=== PATIENT | male | born 1985 | race Caucasian/White ===

== ENCOUNTER 2016-11-12 22:43 | Observation (INO) | payer MEDICAID ==
[2016-11-12] MEDS ORDERED: Haloperidol Lactate 5 mg/mL 1mL Vial ONE ×2 (23:21)
[2016-11-12] MEDS ORDERED: Haloperidol Lactate 5 mg/mL 1mL Vial IM STA ×2 (23:42)
[2016-11-13] MEDS ORDERED: Haloperidol Lactate 5 mg/mL 1mL Vial ONE ×4 (00:42→04:53)
[2016-11-13 00:47] LABS: % BASOPHILS 0.1 % (0.0-2.0); % EOSINOPHILS 1.9 % (0.0-5.0); % LYMPHOCYTES 29.9 % (20.0-50.0); % MONOCYTES 10.9 % (2.0-10.0); % NEUTROPHILS 57.2 % (40.0-80.0); EOSINOPHILE ABSOLUTE 0.1 Th/cmm (0.1-0.4); HEMATOCRIT 34.9 % (41.0-60); HEMOGLOBIN 11.8 gm/dL (12-16); LYMPHOCYTE ABSOLUTE 1.9 Th/cmm (1.5-3.0); MEAN CELL VOLUME 84.8 fl (80-99); MEAN CORPUSCULAR HEMOGLOBIN 28.5 pg (26.0-30.0); MEAN CORPUSCULAR HGB CONC 33.6 pg (28.0-36.0); MEAN PLATELET VOLUME 8.2 fl; MONOCYTE ABSOLUTE 0.7 Th/cmm (0.3-1.0); NEUTROPHILE ABSOLUTE 3.7 Th/cmm (1.8-8.0); PLATELET COUNT 262 Th/cmm (150-400); RED BLOOD COUNT 4.12 Mil/cmm (4.30-5.70); RED CELL DISTRIBUTION WIDTH 13.5 % (11.5-20.0); WHITE BLOOD COUNT 6.4 Th/cmm (4.8-10.8)
[2016-11-13] MEDS ORDERED: Haloperidol Lactate 5 mg/mL 1mL Vial IM STA ×4 (00:55→05:03)
[2016-11-13 01:00] LABS: ACETAMINOPHEN < 10.0 ug/mL (10.0-30.0); ALB/GLOB RATIO 1.2 (1.0-1.8); ALBUMIN 3.6 gm/dL (4.2-5.5); ALKALINE PHOSPHATASE 56 U/L (34-104); ANION GAP 8.6 (7.0-16.0); BILIRUBIN,TOTAL 0.2 mg/dL (0.3-1.0); BUN - UREA NITROGEN 9 mg/dL (7-25); CHLORIDE 102 mEq/L (98-107); CHOLESTEROL 115 mg/dL (<200); CREATININE - SERUM 0.5 mg/dL (0.7-1.3); GFR AFRICAN-AMERICAN > 60.0 ml/min (>90); GFR NON AFRICAN-AMERICAN > 60.0 ml/min; GLUCOSE 94 mg/dL (70-105); HDL -HIGH DENSITY LIPOPROTEIN 28 mg/dL (23-92); POTASSIUM SERUM 3.6 mEq/L (3.5-5.1); SALICYLATES (ASPIRIN) < 25.0 mg/L (30.0-100.0); SGOT 19 U/L (13-39); SGPT/ALT 26 U/L (7-52); SODIUM SERUM 133 mEq/L (136-145); TOTAL PROTEIN,SERUM 6.5 gm/dL (6.0-8.3); TRIGLYCERIDES 69 mg/dL (<150)
[2016-11-13] MEDS ORDERED: Sodium Chloride 0.9% 1,000 ML IV ONE ×2 (01:05)
[2016-11-13 01:57] LABS: URINE MICROSCOPIC INDICATED? YES; URINE SOURCE CLEAN C
[2016-11-13 02:13] LABS: URINE BILIRUBIN NEGATIVE (NEGATIVE); URINE BLOOD NEGATIVE (NEGATIVE); URINE GLUCOSE (UA) NEGATIVE (NEGATIVE); URINE KETONE NEGATIVE (NEGATIVE); URINE LEUKOCYTE ESTERASE NEGATIVE (NEGATIVE); URINE NITRATE NEGATIVE (NEGATIVE); URINE PROTEIN NEGATIVE (NEGATIVE); URINE UROBILINOGEN 0.2 E.U./dL (0.2 - 1.0)
[2016-11-13 02:16] LABS: URINE BACTERIA OCCASIONAL /hpf (NONE SEEN); URINE CLARITY CLEAR (CLEAR); URINE COLOR YELLOW; URINE EPITHELIAL CELLS OCCASIONAL /lpf (FEW); URINE RBC 0-2 /hpf (0-5); URINE WBC 0-2 /hpf (0-5)
[2016-11-13 02:26] LABS: AMPHETAMINE URINE NEGATIVE (NEGATIVE); BARBITURATES URINE NEGATIVE (NEGATIVE); BENZODIAZEPINES QUAL URINE POSITIVE (NEGATIVE); CANNABINOID THC NEGATIVE (NEGATIVE); COCAINE METABOLITE QUAL URINE NEGATIVE (NEGATIVE); METHADONE URINE NEGATIVE (NEGATIVE); METHAMPHETAMINES QUAL URINE NEGATIVE (NEGATIVE); OPIATES (MORPHINE) QUAL. URINE POSITIVE (NEGATIVE); PHENCYCLIDINE (PCP) URINE NEGATIVE (NEGATIVE); TRICYCLICS (TCA) QUAL. URINE NEGATIVE (NEGATIVE)
--- NOTE | 2016-11-13 03:02 | ED Physician Chart ---
ED Chief Complaint/HPI - Patient Information Date Seen:: 11/12/16 Time Seen:: 23:00 Chief Complaint:: Agitation History of Present Illness:: onset x one day of combative behavior, aggression, and agitation; no SIs, H/As, neck pain, C/P, SOB, Abd. pain, A/N/V/D/C, fever, chills, urinary s/s, or LOC Allergies:: Allergies Allergy/AdvReac Type Severity Reaction Status Date / Time No Known Allergies Allergy Verified 11/12/16 23:40 Vitals:: Vital Signs - 8 hr 11/12/16 11/13/16 23:00 01:11 Temp 97.8 F 98.1 F HR 90 90 RR 18 15 BP 148/80 144/72 O2 Sat % 99 100 Historian:: EMS Review:: Nurse's Note Reviewed, EMS run form Reviewed, Transfer documents Reviewed ED Review of Systems - Review of Systems General/Constitutional: No fever, No chills, No weight loss, No weakness, No diaphoresis, No edema, No loss of appetite Skin: No skin lesions, No rash, No bruising Head: No headache, No light-headedness Eyes: No loss of vision, No pain, No diplopia ENT: No earache, No nasal drainage, No sore throat, No tinnitus Neck: No neck pain, No swelling, No thyromegaly, No stiffness, No mass noted Cardio Vascular: No chest pain, No palpitations, No PND, No orthopnea, No edema Pulmonary: No SOB, No cough, No sputum, No wheezing GI: No nausea, No vomiting, No diarrhea, No pain, No melena, No hematochezia, No constipation, No hematemesis G/U: No dysuria, No frequency, No hematuria Musculoskeletal: No bone or joint pain, No back pain, No muscle pain Endocrine: No polyuria, No polydipsia Psychiatric: Prior psych history, Depression, Anxiety, No suicidal ideation, No homicidal ideation, Auditory hallucination, Visual hallucination Hematopoietic: No bruising, No lymphadenopathy Allergic/Immuno: No urticaria, No angioedema Neurological: No syncope, No focal symptoms, No weakness, No paresthesia, No headache, Seizure, No dizziness, Confusion, No vertigo ED Past Medical History - Past Medical History Obtainable: Yes Past Medical History: Dyslipidemia, PUD/GERD, Seizures, Dementia Family History: HTN Social History: Non Smoker, No Alcohol, No Drug Use, Single, Care Facility Surgical History: other (Small Bowel Anastimosis) Psychiatricy History: Schizophrenia, Bipolar, Dementia Medication: Reviewed Family Medical History - Family Member Mother History Unknown: Yes ED Physical Exam - Physical Examination General/Constitutional: Awake, Well-developed, well-nourished, Alert, No distress, GCS 15, Non-toxic appearing, Ambulatory Head: Atraumatic Eyes: Lids, conjuctiva normal, PERRL, EOMI Skin: Nl inspection, No rash, No skin lesions, No ecchymosis, Well hydrated, No lymphadenopathy ENMT: External ears, nose nl, Nasal exam nl, Lips, teeth, gums nl Neck: Nontender, Full ROM w/o pain, No JVD, No nuchal rigidity, No bruit, No mass, No stridor Respiratory: Nl effort/Exclusion, Clear to Auscultation, No Wheeze/Rhonchi/Rales Cardio Vascular: RRR, No murmur, gallop, rubs, NL S1 S2 GI: No tenderness/rebounding/guarding, No organomegaly, No hernia, Normal BS's, Nondistended, No mass/bruits, No McBurney tenderness : No CVA tenderness Extremities: No tenderness or effusion, Full ROM, normal strength in all extremities, No edema, Normal digits & nails Neuro/Psych: DTR's symmetric, Normal sensory exam, Normal motor strength, Normal gait, No focal deficits Other Neuro/Psych comments:: Disoriented and Confused; + Psychomotor Agitation; no SIs; Mood/Affect: Hostile and Labile Misc: Normal back, No paraspinal tenderness ED Labs/Radiology/EKG Results - Lab Results Results: Laboratory Tests 11/13/16 11/13/16 11/13/16 00:37 00:37 00:37 WBC 6.4 RBC 4.12 L Hgb 11.8 L Hct 34.9 L MCV 84.8 MCH 28.5 MCHC Differential 33.6 RDW 13.5 Plt Count 262 MPV 8.2 Neutrophils % 57.2 Lymphocytes % 29.9 Monocytes % 10.9 H Eosinophils % 1.9 Basophils % 0.1 Sodium 133 L Potassium 3.6 Chloride 102 Carbon Dioxide 26.0 Anion Gap 8.6 BUN 9 Creatinine 0.5 L Est GFR ( Amer) > 60.0 Est GFR (Non-Af Amer) > 60.0 BUN/Creatinine Ratio 18.0 Glucose 94 Calcium 9.0 Total Bilirubin 0.2 L AST 19 ALT 26 Alkaline Phosphatase 56 Total Protein 6.5 Albumin 3.6 L Globulin 2.9 Albumin/Globulin Ratio 1.2 Triglycerides 69 Cholesterol 115 LDL Cholesterol Direct 94 HDL Cholesterol 28 TSH 0.88 Urine Source Urine Color Urine Clarity Urine pH Ur Specific [place] Urine Protein Urine Glucose (UA) Urine Ketones Urine Blood Urine Nitrate Urine Bilirubin Urine Urobilinogen Ur Leukocyte Esterase Urine RBC Urine WBC Ur Epithelial Cells Urine Bacteria Salicylates < 25.0 L Urine Opiates Screen Urine Methadone Screen Acetaminophen < 10.0 L Ur Barbiturates Screen Ur Tricyclics Screen Ur Phencyclidine Scrn Amphetamines Screen U Methamphetamines Scrn U Benzodiazepines Scrn U Cocaine Metab Screen U Cannabinoids Screen Ethyl Alcohol < 10 11/13/16 11/13/16 01:50 01:50 WBC RBC Hgb Hct MCV MCH MCHC Differential RDW Plt Count MPV Neutrophils % Lymphocytes % Monocytes % Eosinophils % Basophils % Sodium Potassium Chloride Carbon Dioxide Anion Gap BUN Creatinine Est GFR ( Amer) Est GFR (Non-Af Amer) BUN/Creatinine Ratio Glucose Calcium Total Bilirubin AST ALT Alkaline Phosphatase Total Protein Albumin Globulin Albumin/Globulin Ratio Triglycerides Cholesterol LDL Cholesterol Direct HDL Cholesterol TSH Urine Source CLEAN C Urine Color YELLOW Urine Clarity CLEAR Urine pH 7.0 Ur Specific [place] 1.010 Urine Protein NEGATIVE Urine Glucose (UA) NEGATIVE Urine Ketones NEGATIVE Urine Blood NEGATIVE Urine Nitrate NEGATIVE Urine Bilirubin NEGATIVE Urine Urobilinogen 0.2 Ur Leukocyte Esterase NEGATIVE Urine RBC 0-2 H Urine WBC 0-2 Ur Epithelial Cells OCCASIONAL Urine Bacteria OCCASIONAL Salicylates Urine Opiates Screen POSITIVE H Urine Methadone Screen NEGATIVE Acetaminophen Ur Barbiturates Screen NEGATIVE Ur Tricyclics Screen NEGATIVE Ur Phencyclidine Scrn NEGATIVE Amphetamines Screen NEGATIVE U Methamphetamines Scrn NEGATIVE U Benzodiazepines Scrn POSITIVE H U Cocaine Metab Screen NEGATIVE U Cannabinoids Screen NEGATIVE Ethyl Alcohol Comments:: unremarkable ED Septic Shock - . Is Septic Shock (SBP<90, OR Lactate>4 mmol\L) present?: No - <6hrs of presentation: Vital Signs: Vital Signs - 8 hr 11/12/16 11/13/16 23:00 01:11 Temp 97.8 F 98.1 F HR 90 90 RR 18 15 BP 148/80 144/72 O2 Sat % 99 100 ED Reassessment (Disposition) - Reassessment Reassessment:: pt medically cleared Reassessment Condition:: Improved - Diagnosis Diagnosis:: Manic- Depression; BiPolar Disorder; Schizo-Affective disorder; Psychomotor Agitation - Aftercare/Follow up Instructions Aftercare/Follow-Up Instructions:: Counseled pt regarding lab results/diagnosis & need follow up, Refer to Discharge Instructions, Counseled pt & family regarding lab results/diagnosis & need follow up - Patient Disposition Discharge/Transfer:: PET Team Consult Condition at Disposition:: Stable, Improved (RTER prn if existing reoccur and/ or get worse and/or any other new s/s occur; ACIs given for all Dx; Refer to Psychiatrist/Neurologist/Slice Plug Cutter Operator Helper KALEY; F/U with PMD today or prn; RTER prn if concerned)
--- NOTE | 2016-11-13 12:10 | Internal Medicine Prog Note ---
Internal Medicine Subjective - Subjective Service Date: 11/13/16 ([facility] dictated [id number]) Internal Medicine Objective - Results Result Diagrams: 11/13/16 00:37 11/13/16 00:37 Recent Labs: Laboratory Last Values WBC 6.4 Th/cmm (4.8-10.8) 11/13/16 00:37 RBC 4.12 Mil/cmm (4.30-5.70) L 10 00:37 Hgb 11.8 gm/dL (12-16) L 11/13/16 00:37 Hct 34.9 % (41.0-60) L 10 00:37 MCV 84.8 fl (80-99) 11/13/16 00:37 MCH 28.5 pg (26.0-30.0) 11/13/16 00:37 MCHC Differential 33.6 pg (28.0-36.0) 11/13/16 00:37 RDW 13.5 % (11.5-20.0) 11/13/16 00:37 Plt Count 262 Th/cmm (150-400) 11/13/16 00:37 MPV 8.2 fl 11/13/16 00:37 Neutrophils % 57.2 % (40.0-80.0) 11/13/16 00:37 Lymphocytes % 29.9 % (20.0-50.0) 11/13/16 00:37 Monocytes % 10.9 % (2.0-10.0) H 11/13/16 00:37 Eosinophils % 1.9 % (0.0-5.0) 11/13/16 00:37 Basophils % 0.1 % (0.0-2.0) 11/13/16 00:37 Sodium 133 mEq/L (136-145) L 11/13/16 00:37 Potassium 3.6 mEq/L (3.5-5.1) 11/13/16 00:37 Chloride 102 mEq/L (98-107) 11/13/16 00:37 Carbon Dioxide 26.0 mEq/L (21.0-31.0) 11/13/16 00:37 Anion Gap 8.6 (7.0-16.0) 11/13/16 00:37 BUN 9 mg/dL (7-25) 11/13/16 00:37 Creatinine 0.5 mg/dL (0.7-1.3) L 11/13/16 00:37 Est GFR ( Amer) > 60.0 ml/min (>90) 11/13/16 00:37 Est GFR (Non-Af Amer) > 60.0 ml/min 11/13/16 00:37 BUN/Creatinine Ratio 18.0 11/13/16 00:37 Glucose 94 mg/dL (70-105) 11/13/16 00:37 Calcium 9.0 mg/dL (8.6-10.3) 11/13/16 00:37 Total Bilirubin 0.2 mg/dL (0.3-1.0) L 11/13/16 00:37 AST 19 U/L (13-39) 11/13/16 00:37 ALT 26 U/L (7-52) 11/13/16 00:37 Alkaline Phosphatase 56 U/L (34-104) 11/13/16 00:37 Total Protein 6.5 gm/dL (6.0-8.3) 11/13/16 00:37 Albumin 3.6 gm/dL (4.2-5.5) L 11/13/16 00:37 Globulin 2.9 gm/dL 11/13/16 00:37 Albumin/Globulin Ratio 1.2 (1.0-1.8) 11/13/16 00:37 Triglycerides 69 mg/dL (<150) 11/13/16 00:37 Cholesterol 115 mg/dL (<200) 11/13/16 00:37 LDL Cholesterol Direct 94 mg/dL (75-193) 11/13/16 00:37 HDL Cholesterol 28 mg/dL (23-92) 11/13/16 00:37 TSH 0.88 uIU/ml (0.34-5.60) 11/13/16 00:37 Urine Source CLEAN C 11/13/16 01:50 Urine Color YELLOW 11/13/16 01:50 Urine Clarity CLEAR (CLEAR) 11/13/16 01:50 Urine pH 7.0 (4.6 - 8.0) 11/13/16 01:50 Ur Specific [place] 1.010 (1.005-1.030) 11/13/16 01:50 Urine Protein NEGATIVE mg/dL (NEGATIVE) 11/13/16 01:50 Urine Glucose (UA) NEGATIVE mg/dL (NEGATIVE) 11/13/16 01:50 Urine Ketones NEGATIVE mg/dL (NEGATIVE) 11/13/16 01:50 Urine Blood NEGATIVE (NEGATIVE) 11/13/16 01:50 Urine Nitrate NEGATIVE (NEGATIVE) 11/13/16 01:50 Urine Bilirubin NEGATIVE (NEGATIVE) 11/13/16 01:50 Urine Urobilinogen 0.2 E.U./dL (0.2 - 1.0) 11/13/16 01:50 Ur Leukocyte Esterase NEGATIVE (NEGATIVE) 11/13/16 01:50 Urine RBC 0-2 /hpf (0-5) H 11/13/16 01:50 Urine WBC 0-2 /hpf (0-5) 11/13/16 01:50 Ur Epithelial Cells OCCASIONAL /lpf (FEW) 11/13/16 01:50 Urine Bacteria OCCASIONAL /hpf (NONE SEEN) 11/13/16 01:50 Salicylates < 25.0 mg/L (30.0-100.0) L 11/13/16 00:37 Urine Opiates Screen POSITIVE (NEGATIVE) H 11/13/16 01:50 Urine Methadone Screen NEGATIVE (NEGATIVE) 11/13/16 01:50 Acetaminophen < 10.0 ug/mL (10.0-30.0) L 11/13/16 00:37 Ur Barbiturates Screen NEGATIVE (NEGATIVE) 11/13/16 01:50 Ur Tricyclics Screen NEGATIVE (NEGATIVE) 11/13/16 01:50 Ur Phencyclidine Scrn NEGATIVE (NEGATIVE) 11/13/16 01:50 Amphetamines Screen NEGATIVE (NEGATIVE) 11/13/16 01:50 U Methamphetamines Scrn NEGATIVE (NEGATIVE) 11/13/16 01:50 U Benzodiazepines Scrn POSITIVE (NEGATIVE) H 11/13/16 01:50 U Cocaine Metab Screen NEGATIVE (NEGATIVE) 11/13/16 01:50 U Cannabinoids Screen NEGATIVE (NEGATIVE) 11/13/16 01:50 Ethyl Alcohol < 10 mg/dL (0-10) 11/13/16 00:37 - Physical Exam Vitals and I&O: Vital Signs Temp 97.5 F 11/13/16 10:22 Pulse 90 11/13/16 10:22 Resp 18 11/13/16 10:22 BP 128/68 11/13/16 10:22 Pulse Ox 98 10/05/17 10:22 Internal Medicine Assmt/Plan - Assessment Assessment: ALTERED MENTAL STATUS AGITATION WOUND DEHISCENCE SEIZURES ANEMIA HYPERLIPIDEMIA AUTISTIC IMPULSE DISORDER SCHIZOPHRENIA OCD
[2016-11-13] MEDS ORDERED: Hydrocodone/APAP 5mg/325mg Tab PO PRN ×2 (12:11)
[2016-11-13] MEDS ORDERED: Maalox 30 mL Cup PO PRN ×2 (12:13)
[2016-11-13] MEDS ORDERED: Albuterol Nebulizer 2.5mg/3mL IH PRN ×2 (12:13)
[2016-11-13] MEDS ORDERED: Ipratropium Neb 0.5 mg/2.5 mL UD HHN PRN ×2 (12:13)
[2016-11-13] MEDS ORDERED: guaiFENesin 200 MG/10 ML UDC PO PRN ×2 (12:13)
[2016-11-13] MEDS ORDERED: D5-0.45NS 1,000 ML IV SCH ×2 (12:15)
[2016-11-13] MEDS ORDERED: Diltiazem 30 mg Tab PO SCH ×2 (13:00)
[2016-11-13] MEDS ORDERED: Pneumococcal Vaccine 0.5 mL Vial IM ONE ×2 (13:54)
[2016-11-13] MEDS ORDERED: LEVETIRACETAM 1000 MG PO SCH ×2 (17:00)
--- NOTE | 2016-11-13 17:12 | History & Physical ---
ADMIT DATE: 11/13/2016 CHIEF COMPLAINT: ALOC. HISTORY OF PRESENT ILLNESS: This is a 31-year-old male who is a resident of [facility] who is brought here to [facility] for 1-day history of altered mental status and agitation. The patient is also noted with wound dehiscence. Per the nursing staff at [facility], the patient used to have a wound VAC. The patient has been noncompliant. The patient has been taking off the wound VAC and has tried to lick his wound. The patient suffers from pica. Upon examination, the patient is noninteractive, appears to be agitated. PAST MEDICAL HISTORY: Seizures, septic shock, perforated viscus, resection of perforated bowel, hyperlipidemia, anemia, MR, autistic impulsive disorder, OCD, schizophrenia and pica. PAST SURGICAL HISTORY: Resection of perforated bowel. SOCIAL HISTORY: The [facility] is a [facility] resident, requiring 24-hour nursing care. MEDICATIONS: Please see medication reconciliation sheet. REVIEW OF SYSTEMS: Unable to obtain due to patient's mental status. PHYSICAL EXAMINATION: GENERAL: This is a young male, awake and nonverbal, in no upper distress. VITAL SIGNS: Temperature ____, heart rate 90, blood pressure ____, respiration 18, O2 98%. HEENT: Head; Normocephalic and atraumatic. NECK: Supple. No mass. LUNGS: Clear bilaterally. HEART: Regular rate and rhythm. ABDOMEN: Noted with open wound to the abdominal wall. LABORATORY DATA: WBC 6.4, H and H 11.8 and 34.9, platelets 262. Sodium 132, potassium 3.6, chloride 102, BUN 9, creatinine 0.5. Urinalysis, the patient had the UA done and negative for any UTI. ASSESSMENT: Altered mental status, agitation, wound dehiscence, seizures, hyperlipidemia, anemia, mental retardation, autistic impulsive disorder, obstructive compulsive disorder, schizophrenia and pica. PLAN: The patient to be admitted to the med/surg unit. We will get a wound culture for the patient's wound dehiscence. Keep the patient on IV fluids for hydration. We will have Psych consult. We will have sitter for safety. We will continue to monitor the patient. JOB# [id number]
--- NOTE | 2016-11-13 17:12 | History & Physical ---
ADMIT DATE: 11/13/2016 CHIEF COMPLAINT: ALOC. HISTORY OF PRESENT ILLNESS: This is a 31-year-old male who is a resident of [facility] who is brought here to [facility] for 1-day history of altered mental status and agitation. The patient is also noted with wound dehiscence. Per the nursing staff at [facility], the patient used to have a wound VAC. The patient has been noncompliant. The patient has been taking off the wound VAC and has tried to lick his wound. The patient suffers from pica. Upon examination, the patient is noninteractive, appears to be agitated. PAST MEDICAL HISTORY: Seizures, septic shock, perforated viscus, resection of perforated bowel, hyperlipidemia, anemia, MR, autistic impulsive disorder, OCD, schizophrenia and pica. PAST SURGICAL HISTORY: Resection of perforated bowel. SOCIAL HISTORY: The [facility] is a [facility] resident, requiring 24-hour nursing care. MEDICATIONS: Please see medication reconciliation sheet. REVIEW OF SYSTEMS: Unable to obtain due to patient's mental status. PHYSICAL EXAMINATION: GENERAL: This is a young male, awake and nonverbal, in no upper distress. VITAL SIGNS: Temperature ____, heart rate 90, blood pressure ____, respiration 18, O2 98%. HEENT: Head; Normocephalic and atraumatic. NECK: Supple. No mass. LUNGS: Clear bilaterally. HEART: Regular rate and rhythm. ABDOMEN: Noted with open wound to the abdominal wall. LABORATORY DATA: WBC 6.4, H and H 11.8 and 34.9, platelets 262. Sodium 132, potassium 3.6, chloride 102, BUN 9, creatinine 0.5. Urinalysis, the patient had the UA done and negative for any UTI. ASSESSMENT: Altered mental status, agitation, wound dehiscence, seizures, hyperlipidemia, anemia, mental retardation, autistic impulsive disorder, obstructive compulsive disorder, schizophrenia and pica. PLAN: The patient to be admitted to the med/surg unit. We will get a wound culture for the patient's wound dehiscence. Keep the patient on IV fluids for hydration. We will have Psych consult. We will have sitter for safety. We will continue to monitor the patient. JOB# [id number]
--- NOTE | 2016-11-13 17:12 | History & Physical ---
ADMIT DATE: 11/13/2016 CHIEF COMPLAINT: ALOC. HISTORY OF PRESENT ILLNESS: This is a 31-year-old male who is a resident of [facility] who is brought here to [facility] for 1-day history of altered mental status and agitation. The patient is also noted with wound dehiscence. Per the nursing staff at [facility], the patient used to have a wound VAC. The patient has been noncompliant. The patient has been taking off the wound VAC and has tried to lick his wound. The patient suffers from pica. Upon examination, the patient is noninteractive, appears to be agitated. PAST MEDICAL HISTORY: Seizures, septic shock, perforated viscus, resection of perforated bowel, hyperlipidemia, anemia, MR, autistic impulsive disorder, OCD, schizophrenia and pica. PAST SURGICAL HISTORY: Resection of perforated bowel. SOCIAL HISTORY: The patient is a group home resident, requiring 24-hour nursing care. MEDICATIONS: Please see medication reconciliation sheet. REVIEW OF SYSTEMS: Unable to obtain due to patient's mental status. PHYSICAL EXAMINATION: GENERAL: This is a young male, awake and nonverbal, in no upper distress. VITAL SIGNS: Temperature ____, heart rate 90, blood pressure ____, respiration 18, O2 98%. HEENT: Head; Normocephalic and atraumatic. NECK: Supple. No mass. LUNGS: Clear bilaterally. HEART: Regular rate and rhythm. ABDOMEN: Noted with open wound to the abdominal wall. LABORATORY DATA: WBC 6.4, H and H 11.8 and 34.9, platelets 262. Sodium 132, potassium 3.6, chloride 102, BUN 9, creatinine 0.5. Urinalysis, the patient had the UA done and negative for any UTI. ASSESSMENT: Altered mental status, agitation, wound dehiscence, seizures, hyperlipidemia, anemia, mental retardation, autistic impulsive disorder, obstructive compulsive disorder, schizophrenia and pica. PLAN: The patient to be admitted to the med/surg unit. We will get a wound culture for the patient's wound dehiscence. Keep the patient on IV fluids for hydration. We will have Psych consult. We will have sitter for safety. We will continue to monitor the patient. JOB# [id number]
--- NOTE | 2016-11-13 19:53 | Consultation ---
DATE OF CONSULTATION: 11/13/2016 REFERRING PHYSICIAN: Dr. Schofield. REASON FOR CONSULTATION: Dehiscence midline abdominal incision. Thank you for referring this patient to me. HISTORY OF PRESENT ILLNESS: This is a 31-year-old male, who is autistic, unable to communicate with obsessive compulsive disorder. He underwent resection of the bowel for perforation about 2 months ago at [facility]. He stays at [facility] and apparently he was discharged with wound VAC, but he stares at it and is unable to rest and keep the dressings intact. He on some occasion apparently has tried to put saliva on the wound. LABORATORY STUDIES: Show CBC to be essentially normal. Chemistry likewise. PHYSICAL EXAMINATION: Caregiver is at bedside, who apparently can give consent. The patient is eating and on examination of the abdomen, there is a dehisced wound with granulating tissue and necrotic tissues at the base. The incision extends about 25 x 3 cm. RECOMMENDATIONS: [facility], the wound needs to be debrided and application of wound VAC will need to be applied again. Discharge plan have to decide on what to do. JOB# [id number] JENNY
--- NOTE | 2016-11-13 19:53 | Consultation ---
DATE OF CONSULTATION: 11/13/2016 REFERRING PHYSICIAN: Dr. Schofield. REASON FOR CONSULTATION: Dehiscence midline abdominal incision. Thank you for referring this patient to me. HISTORY OF PRESENT ILLNESS: This is a 31-year-old male, who is autistic, unable to communicate with obsessive compulsive disorder. He underwent resection of the bowel for perforation about 2 months ago at [facility]. He stays at [facility] and apparently he was discharged with wound VAC, but he stares at it and is unable to rest and keep the dressings intact. He on some occasion apparently has tried to put saliva on the wound. LABORATORY STUDIES: Show CBC to be essentially normal. Chemistry likewise. PHYSICAL EXAMINATION: Caregiver is at bedside, who apparently can give consent. The patient is eating and on examination of the abdomen, there is a dehisced wound with granulating tissue and necrotic tissues at the base. The incision extends about 25 x 3 cm. RECOMMENDATIONS: [facility], the wound needs to be debrided and application of wound VAC will need to be applied again. Discharge plan have to decide on what to do. JOB# [id number] JENNY
--- NOTE | 2016-11-13 19:53 | Consultation ---
DATE OF CONSULTATION: 11/13/2016 REFERRING PHYSICIAN: Dr. Schofield. REASON FOR CONSULTATION: Dehiscence midline abdominal incision. Thank you for referring this patient to me. HISTORY OF PRESENT ILLNESS: This is a 31-year-old male, who is autistic, unable to communicate with obsessive compulsive disorder. He underwent resection of the bowel for perforation about 2 months ago at [facility]. He stays at [facility] and apparently he was discharged with wound VAC, but he stares at it and is unable to rest and keep the dressings intact. He on some occasion apparently has tried to put saliva on the wound. LABORATORY STUDIES: Show CBC to be essentially normal. Chemistry likewise. PHYSICAL EXAMINATION: Caregiver is at bedside, who apparently can give consent. The patient is eating and on examination of the abdomen, there is a dehisced wound with granulating tissue and necrotic tissues at the base. The incision extends about 25 x 3 cm. RECOMMENDATIONS: [facility], the wound needs to be debrided and application of wound VAC will need to be applied again. Discharge plan have to decide on what to do. JOB# [id number] JENNY
--- NOTE | 2016-11-13 23:05 | Consultation ---
DATE OF CONSULTATION: 11/13/2016 HISTORY OF PRESENT ILLNESS: A 31-year-old male with history combative behaviors, aggression, agitation, history of mental retardation, developmental disability brought to the ER now currently admitted. On [id number], the patient poorly oriented, confused. Moving around a lot, not stable. Medications were noted. PAST PSYCHIATRIC HISTORY: Noted developmental disability; mood, unspecified; psychosis, unspecified. SOCIAL HISTORY: The patient under the care of the [facility], had been living at a facility. MENTAL STATUS EXAMINATION: Stated age, little eye contact, not speaking, mumbling and moaning, mood unknown. Affect flat. Thought processes were disorienting and confused. Thought content, difficult to fully assess. Poor insight, poor judgment, poor impulse control. No overt SI or HI. Unclear psychotic symptoms. He seems psychomotorically agitated and accelerated at this time. PROVISIONAL DIAGNOSIS: Developmental disability; psychosis, unspecified; mood, unspecified; anxiety, unspecified. MEDICAL: Please see full H and P. RECOMMENDATIONS AND PLAN: We will make medication adjustments increase dosing of Haldol, start on Depakote and Ativan. The patient may need _adjustment of__ _ Seroquel. JOB# [id number] JENNY
--- NOTE | 2016-11-13 23:05 | Consultation ---
DATE OF CONSULTATION: 11/13/2016 HISTORY OF PRESENT ILLNESS: A 31-year-old male with history combative behaviors, aggression, agitation, history of mental retardation, developmental disability brought to the ER now currently admitted. On [id number], the patient poorly oriented, confused. Moving around a lot, not stable. Medications were noted. PAST PSYCHIATRIC HISTORY: Noted developmental disability; mood, unspecified; psychosis, unspecified. SOCIAL HISTORY: The patient under the care of the [facility], had been living at a facility. MENTAL STATUS EXAMINATION: Stated age, little eye contact, not speaking, mumbling and moaning, mood unknown. Affect flat. Thought processes were disorienting and confused. Thought content, difficult to fully assess. Poor insight, poor judgment, poor impulse control. No overt SI or HI. Unclear psychotic symptoms. He seems psychomotorically agitated and accelerated at this time. PROVISIONAL DIAGNOSIS: Developmental disability; psychosis, unspecified; mood, unspecified; anxiety, unspecified. MEDICAL: Please see full H and P. RECOMMENDATIONS AND PLAN: We will make medication adjustments increase dosing of Haldol, start on Depakote and Ativan. The patient may need _adjustment of__ _ Seroquel. JOB# [id number] JENNY
--- NOTE | 2016-11-13 23:05 | Consultation ---
DATE OF CONSULTATION: 11/13/2016 HISTORY OF PRESENT ILLNESS: A 31-year-old male with history combative behaviors, aggression, agitation, history of mental retardation, developmental disability brought to the ER now currently admitted. On [id number], the patient poorly oriented, confused. Moving around a lot, not stable. Medications were noted. PAST PSYCHIATRIC HISTORY: Noted developmental disability; mood, unspecified; psychosis, unspecified. SOCIAL HISTORY: The patient under the care of the [facility], had been living at a facility. MENTAL STATUS EXAMINATION: Stated age, little eye contact, not speaking, mumbling and moaning, mood unknown. Affect flat. Thought processes were disorienting and confused. Thought content, difficult to fully assess. Poor insight, poor judgment, poor impulse control. No overt SI or HI. Unclear psychotic symptoms. He seems psychomotorically agitated and accelerated at this time. PROVISIONAL DIAGNOSIS: Developmental disability; psychosis, unspecified; mood, unspecified; anxiety, unspecified. MEDICAL: Please see full H and P. RECOMMENDATIONS AND PLAN: We will make medication adjustments increase dosing of Haldol, start on Depakote and Ativan. The patient may need _adjustment of__ _ Seroquel. JOB# [id number] JENNY
[2016-11-14] MEDS ORDERED: Polyvinyl Alcohol Ophth Soln 15 mL Bottle EACH EYE SCH ×2 (09:00)
[2016-11-14] MEDS ORDERED: Pantoprazole 40 mg EC Tab PO SCH ×2 (09:00)
[2016-11-14] MEDS ORDERED: Venelex 60gm Tube TP SCH ×2 (09:00)
[2016-11-14] MEDS ORDERED: Magnesium Hydroxide (MOM) 30 mL UDC PO PRN ×2 (09:00)
== END 2016-11-13 16:00 | disposition short-term general hospital (02) ==
LOC: ER 22:43 → MSI 11-13 10:38 → INTOOBSV 11-13 10:38 → UNDODISIN 11-13 16:00
PROVIDERS: ADMIT Internal Medicine; ATTEND Internal Medicine
DX: T81.30XA Disruption of wound, unspecified, initial encounter (principal); F25.9 Schizoaffective disorder, unspecified; E78.5 Hyperlipidemia, unspecified; K21.9 Gastro-esophageal reflux disease without esophagitis; F31.9 Bipolar disorder, unspecified; R41.82 Altered mental status, unspecified; F42.9 Obsessive-compulsive disorder, unspecified; Y83.8 Other surgical procedures as the cause of abnormal reaction of the patient, or of later complication, without mention of misadventure at the time of the procedure; Y92.89 Other specified places as the place of occurrence of the external cause; D64.9 Anemia, unspecified
CPT/HCPCS: 36415-UA; 80053-TC; 80061-TC; 80307; 80320-TC; 80329-TC; 81001-TC; 84443-TC; 85025-TC; 86592-TC; 87070-90; 87075-90; 87205-90; 93005; G0378; J1200; J1630; J2060; J7030; Z7610